=== PATIENT | male | born 1970 | race Hispanic/Latino ===

== ENCOUNTER 2024-08-11 09:08 | Emergency (ER) | payer SELFPAY ==
[2024-08-11] MEDS ORDERED: Ipratropium/Albuterol 3 ML NEB ONE ×2 (09:21→11:08)
[2024-08-11] MEDS ORDERED: dilTIAZem 25 MG/5 ML VIAL ONE ×2 (09:23→09:30)
[2024-08-11] MEDS ORDERED: Sodium Chloride 0.9% 1,000 ML ONE ×2 (09:23→10:20)
[2024-08-11] MEDS ORDERED: dilTIAZem 125 MG/25 ML SDV ONE (09:30)
[2024-08-11] MEDS ORDERED: Sodium Chloride 0.9% 100 ML ONE ×2 (09:30→09:57)
[2024-08-11 09:40] LABS: Hemoglobin 13.1 g/dL (14.0-18.0); Mean Corpuscular HGB CONC 30.5 g/dL (32.0-36.0); Mean Corpuscular Hemoglobin 32.6 pg (27.0-31.0); Red Blood Cell (RBC) Count 4.03 mill/uL (4.70-6.10); White Blood Cell (WBC) Count 12.4 10x3/uL (4.8-10.8)
[2024-08-11 09:41] LABS: Manual Diff?? YES; Mean Platelet Volume 9.5 fL (7.4-10.4); Platelet Count 62 10x3/uL (130-400); RBC Distribution Width 14.6 % (11.5-14.5)
[2024-08-11 09:51] LABS: Prothrombin Time 31.4 sec (12.0-14.7)
[2024-08-11 09:52] LABS: PTT 41.2 sec (22.9-36.1)
[2024-08-11] MEDS ORDERED: Amiodarone 150 MG/3 ML VIAL ONE (09:53)
[2024-08-11 09:55] LABS: ALT (SGPT) 21 U/L (Less than 45); AST (SGOT) 103 U/L (11-34); Alkaline Phosphatase 62 U/L (40-110); Anion Gap 23 mmol/L (10-20); BUN (Urea Nitrogen) 37 mg/dL (8.4-25.7); Bilirubin, Total 5.6 mg/dL (0.3-1.2); Calc. Creatinine Clearance 0 mL/min (70-130); Carbon Dioxide 13 mmol/L (22-29); Chloride 101 mmol/L (98-107); Estimated GFR 54; Globulin 4.6 g/dL (2.4-3.5); Glucose 60 mg/dL (70-105); Potassium 5.4 mmol/L (3.5-5.1); Protein, Total 6.6 g/dL (6.0-8.3); Sodium 132 mmol/L (136-145)
[2024-08-11 09:56] LABS: Troponin I 0.146 ng/mL (< 0.028)
[2024-08-11] MEDS ORDERED: cefTRIAXone (ROCEPHIN) 2 GM VIAL ONE (09:57)
[2024-08-11 09:58] LABS: Band 12 % (5-11)
[2024-08-11 09:59] LABS: Acetaminophen Less than 10 mcg/mL (Less than 10); Alcohol Less than 10.0 mg/dL (Less than 10); Eosinophils 1 % (0-10); Lymphocytes 6 % (21-51); Monocytes 2 % (0-10); Salicylate Less than 8.0 mg/dL (Less than 8.0)
[2024-08-11 10:00] LABS: Bicarbonate (HCO3v) 15.5 mmol/L (22.0-28.0); CO2 Tension (PvCO2) 34.8 mmHg (42.0-51.0); Macrocytosis SLIGHT = 6-15 cells (100X) (0-5/hpf); Platelet Adequacy Comment Appears Decreased
[2024-08-11 10:01] LABS: Base Excess-Venous -10.6 mmol/L (-2.0 to 3.0); Hemoglobin - Calc 14.7 g/dL (14.0-18.0); Potassium 5.3 mmol/L (3.5-5.1); Sodium 134 mmol/L (138-145); vO2 Saturation-calc 69.1 % (60.0-85.0)
[2024-08-11 10:02] LABS: Calcium, Ionized 1.15 mmol/L (1.15-1.33); T. Carbon Dioxide 16.6 mmol/L (22.0-28.0)
[2024-08-11] MEDS ORDERED: Dextrose 5% in Water 100 ML ONE (10:02)
[2024-08-11 10:05] LABS: D-Dimer Test 9.92 mcg/mL (0.27-0.43)
[2024-08-11 10:30] LABS: Lipase 31 U/L (8-78)
[2024-08-11] MEDS ORDERED: NOREPINEPHRINE 8 MG/250 ML-D5W 250 ML ONE (10:31)
[2024-08-11] MEDS ORDERED: Amiodarone 450 MG/9 ML VIAL ONE (10:33)
[2024-08-11] MEDS ORDERED: Vancomycin 1 GM VIAL ONE (10:47)
[2024-08-11] MEDS ORDERED: Sodium Chloride 0.9% 500 ML ONE (10:47)
[2024-08-11] MEDS ORDERED: Ondansetron PF 4 MG/2 ML Vial ONE (10:51)
[2024-08-11] MEDS ORDERED: Benzonatate 100 MG CAP ONE (10:58)
[2024-08-11] MEDS ORDERED: guaiFENesin ER 600 MG TAB ONE (10:59)
== END 2024-08-11 11:42 | disposition short-term general hospital (02) ==
LOC: NAV ERS 09:08
DX: A41.9 Sepsis, unspecified organism (principal); J18.9 Pneumonia, unspecified organism; F10.20 Alcohol dependence, uncomplicated; R79.1 Abnormal coagulation profile; R79.89 Other specified abnormal findings of blood chemistry; E87.20 Acidosis, unspecified; N28.9 Disorder of kidney and ureter, unspecified; R00.0 Tachycardia, unspecified
CPT/HCPCS: 71045; 80053; 80307; 82330; 82803; 83605; 83690; 83735; 83880; 84132; 84295; 84443; 84484; 85014; 85025; 85379; 85610; 85730; 87040; 87077; 87149; 87186; 87428; 93005; 94760; 96365; 96367; 96375; 96376; J0282; J0696; J2405; J3370; J7030; J7070; J7620